=== PATIENT | male | born 1990 | race African-American/Black ===

== ENCOUNTER 2023-12-01 18:32 | Emergency (ER) | payer MEDICAID, OTHER ==
[~2023-12-01] VITALS: Ht 175.3 cm; Wt 84.1 kg
[2023-12-01 19:32] VITALS: BP 128/79; PULSE 61; RESP 15; TEMP 97.5; O2SAT 100
[2023-12-01 20:37] LABS: Urine Bacteria NONE SEEN /hpf (None Seen); Urine Blood 2+ /uL (Negative); Urine Clarity Clear (Clear); Urine Color Yellow (Yellow); Urine Protein, UAD TRACE (Negative); Urine Specific Gravity 1.024 (1.001-1.035); Urine WBC 30 /hpf (0 - 3); Urine pH 6.5 (5.0-8.0)
[2023-12-01] MEDS: cefTRIAXone SOD 500 MG VL IM ONE (21:47)
[2023-12-01] MEDS: AZITHROMYCIN 250 MG TAB PO ONE (21:47)
[2023-12-04 04:07] LABS: Chlamydia Trachomatis, NAA Positive (Negative); Neisseria gonorrhoeae, NAA Negative (Negative)
== END 2023-12-01 23:44 | disposition home or self-care (01) ==
LOC: ER 18:32
DX: N39.0 Urinary tract infection, site not specified (principal); Z88.0 Allergy status to penicillin
CPT/HCPCS: 81001; 87491; 87591; 96372; 99283; J0696